=== PATIENT | female | born 1955 | race Two or more races ===

== ENCOUNTER 2019-01-09 02:19 | Inpatient (IN) | payer MEDICAID ==
[~2019-01-09] VITALS: Ht 149.9 cm; Wt 57.6 kg
[2019-01-09 03:02] VITALS: BP 133/75
[2019-01-09 03:05] VITALS: BP 133/78
--- NOTE | 2019-01-09 03:05 | NUR ---
RECEIVED PATIENT FROM [facility] A DIRECT ADMIT. PATIENT AO X 3, ABLE TO MAKE NEEDS KNOWN. AMBULATORY. NO ACUTE DISTRESS NOTED. DENIES ANY PAIN AT THIS TIME. IV SITE PATENT, INTACT; FLUSHED. SKIN INTACT. SAFETY PRECAUTIONS AND COMFORT MEASURES IN PLACE. WILL GIVE REPORT TO DAY SHIFT FOR CONTINUITY OF CARE.
[2019-01-09] MEDS ORDERED: ENAL20TA PO (03:42)
[2019-01-09] MEDS ORDERED: IV NS 0.9% 1,000 ML IV PRN (04:40)
[2019-01-09] MEDS ORDERED: Z GUARD REMEDY 2 OZ OINT TP PRN (05:00)
[2019-01-09] MEDS ORDERED: ONDANSETRON HCL/PF 4 MG/2 ML VIAL IVP PRN (05:00)
[2019-01-09] MEDS ORDERED: MORPHINE SULFATE INJ 2 MG/ML DISP.SYRIN IV PRN (05:00)
[2019-01-09] MEDS ORDERED: ACETAMINOPHEN 325 MG TABLET PO PRN (05:00)
[2019-01-09] MEDS ORDERED: PIPERACILLIN /TAZOBACTAM 3.375 G in IV D5W 50 ML IV SCH (06:00)
[2019-01-09] MEDS ORDERED: PIPERACILLIN /TAZOBACTAM 3.375 G in IV D5W 50 ML IV ONE (06:00)
[2019-01-09] MEDS ORDERED: PIPERACILLIN /TAZOBACTAM 3.375 G VIAL IV ONE (06:20)
[2019-01-09 06:21] LABS: BASOPHILS % (AUTO) 0.3 % (0.0-2.0); EOSINOPHILS % (AUTO) 0.1 % (0.0-6.0); HEMATOCRIT 35 % (33-45); LYMPHOCYTES # (AUTO) 0.9 /CMM (0.8-4.8); LYMPHOCYTES % (AUTO) 8.1 % (20.0-44.0); MEAN CORPUSCULAR HGB CONC 34 g/dl (31.0-36.0); MEAN CORPUSCULAR VOLUME 87 fL (82-100); MONOCYTES # (AUTO) 0.8 /CMM (0.1-1.30); MONOCYTES % (AUTO) 7.3 % (2.0-12.0); NEUTROPHILS # (AUTO) 9.1 /CMM (1.8-8.9); NEUTROPHILS % (AUTO) 84.2 % (43.0-81.0); PLATELET COUNT (AUTO) 195 /CMM (150-450); RED BLOOD CELL COUNT(AUTO) 4.03 MIL/uL (4.0-5.2); WHITE BLOOD COUNT (AUTO) 10.8 K/uL (4.3-11.0)
--- NOTE | 2019-01-09 06:30 | NUR ---
PATIENT ASLEEP, EASILY AROUSABLE. RESPIRATIONS EVEN. NO SIGNS OF PAIN NOTED. DUE MEDS GIVEN WITH NO ASE NOTED. IVF INFUSING ORDERED. NEEDS ATTENDED. WILL GIVE REPORT TO DAY SHIFT FOR CONTINUITY OF CARE.
[2019-01-09 06:32] LABS: CALCIUM, SERUM 7.4 mg/dL (8.5-10.1); CREATININE 0.5 mg/dL (0.6-1.3); MAGNESIUM 2.4 mg/dL (1.8-2.4); POTASSIUM 3.6 mmol/L (3.5-5.1)
[2019-01-09 08:00] VITALS: BP 116/56
[2019-01-09] MEDS ORDERED: PANTOPRAZOLE 40 MG VIAL IV SCH (09:00)
[2019-01-09] MEDS ORDERED: OMEG1CAP40 PO (10:13)
[2019-01-09] MEDS ORDERED: OMEP20CA10 PO (10:13)
--- NOTE | 2019-01-09 10:19 | NUR ---
patient refused to sighed consent for surgery. Dr. Ulloa notified
[2019-01-09] MEDS ORDERED: PIPERACILLIN /TAZOBACTAM 3.375 G in IV D5W 100 ML IV SCH (12:00)
[2019-01-09 12:33] LABS: ALBUMIN 3.5 g/dL (3.4-5.0); BILIRUBIN,DIRECT 0.1 mg/dL (0.0-0.2); BILIRUBIN,TOTAL 0.9 mg/dL (0.2-1.0); TOTAL PROTEIN, SERUM 6.8 g/dL (6.4-8.2)
[2019-01-09] MEDS ORDERED: K PHOS NEUTRAL 250 MG TABLET PO ONE (13:00)
[2019-01-09] MEDS ORDERED: CIPR-262 PO (14:11)
[2019-01-09 16:00] VITALS: BP 103/56
--- NOTE | 2019-01-09 17:30 | NUR ---
patient started on regular diet; tolerated well.
--- NOTE | 2019-01-09 19:11 | NUR ---
patient cleared for d/c to home by . Patient alert and oriented x4 , VS are stable and within normal range, afebrile on room air. No distress Addendum: 01/09/19 at 1933 by MATEUS DAVIS RN no distress noted. Patient denies pain and tolerated regular diet well. D/c instructions and education provided to patient :patient verbalized understanding. Patient will f/u with PCP in one week. Prescription given to patient. Patient's skin intact. IV line removed. ID wrist band removed.all d/c papers signed , including valuable form. Patient safely transferred to [facility] via wheelchair accompanied by family and [employer].
== END 2019-01-09 19:15 | disposition home or self-care (01) ==
LOC: MEDSG2 02:50
PROVIDERS: ADMIT Nurse Practitioner Acute Care; ATTEND Nurse Practitioner Acute Care
DX: K80.20 Calculus of gallbladder without cholecystitis without obstruction (principal); E87.2 Acidosis; R65.10 Systemic inflammatory response syndrome (SIRS) of non-infectious origin without acute organ dysfunction; E87.1 Hypo-osmolality and hyponatremia; I10 Essential (primary) hypertension; E87.6 Hypokalemia
CPT/HCPCS: 36415; 76700-TC; 80048-TC; 80076-TC; 83735-TC; 84100-TC; 85025-TC; 87081-TC; C9113; G0378; J2543; J7030; J7060